=== PATIENT | male | born 1975 | race African-American/Black ===

== ENCOUNTER 2022-09-12 14:10 | Emergency (ER) | payer MEDICAID ==
[~2022-09-12] VITALS: Ht 170.2 cm; Wt 61.4 kg
[2022-09-12] MEDS ORDERED: TETRACAINE HCL/PF 0.5% 4 ML OPHTHALMIC SOLUTION OU ONE (14:45)
[2022-09-12] MEDS ORDERED: FLUORESCEIN SODIUM 1 MG STRIP OD ONE (14:45)
[2022-09-12] MEDS ORDERED: PERTUSS(ACELL),DIPH,TET VAC/PF 0.5 ML SYRINGE IM. ONE (15:00)
[2022-09-12] MEDS ORDERED: IBUPROFEN 600 MG TABLET PO ONE (15:00)
[2022-09-12 18:57] VITALS: BP 127/88
[2022-09-12] MEDS ORDERED: ERYT3.5O8 OD (20:09)
== END 2022-09-12 20:32 | disposition home or self-care (01) ==
LOC: EMS 14:20
DX: H57.11 Ocular pain, right eye (principal)
CPT/HCPCS: 70480; 90471; 90715; 99285

== ENCOUNTER 2023-08-01 18:33 | Emergency (ER) | payer MEDICAID, OTHER ==
[~2023-08-01] VITALS: Ht 167.6 cm; Wt 56.8 kg
[~2023-08-01 18:33] MED LIST: ERYT3.5O8 OD
[2023-08-01 19:17] LABS: COVID AG,FIA SOURCE NASAL SWAB
[2023-08-01 19:36] LABS: INFLUENZA TYPE A NEGATIVE FOR TYPE A (NEGATIVE); INFLUENZA TYPE B NEGATIVE FOR TYPE B (NEGATIVE)
[2023-08-01 19:42] LABS: SARS-COV2 (COVID) ANTIGEN,FIA Positive (Negative)
[2023-08-01] MEDS ORDERED: IBUP-1554 PO (20:43)
[2023-08-01] MEDS ORDERED: NIRM1TAB4 PO (20:43)
[2023-08-01] MEDS ORDERED: ACET-2080 PO (20:43)
[2023-08-01] MEDS ORDERED: GUAIFDM PO (20:43)
[2023-08-01 21:07] VITALS: BP 127/66; PULSE 89; RESP 17; TEMP 98.9
== END 2023-08-01 21:20 | disposition home or self-care (01) ==
LOC: EMS 18:34
DX: U07.1 COVID-19 (principal); J06.9 Acute upper respiratory infection, unspecified
CPT/HCPCS: 87804; 99283